=== PATIENT | female | born 1945 | race Caucasian/White ===

== ENCOUNTER → 2021-12-13 08:56 | Outpatient (BNVA) | payer MEDICARE, OTHER, SELFPAY | PROVIDERS: PCP Family Medicine; Visit Provider Internal Medicine Cardiovascular Disease | DX: I83.813 Varicose veins of bilateral lower extremities with pain (principal); E78.5 Hyperlipidemia, unspecified; Z79.82 Long term (current) use of aspirin | CPT/HCPCS: 93005; Q3014 ==

== ENCOUNTER → 2022-01-14 13:16 | Outpatient (BNVA) | payer MEDICARE, OTHER, SELFPAY | PROVIDERS: PCP Family Medicine; Visit Provider Surgery Vascular Surgery | DX: I83.11 Varicose veins of right lower extremity with inflammation (principal) | CPT/HCPCS: 99202 ==

== ENCOUNTER 2022-01-23 12:40 | Outpatient (REF) | payer MEDICARE, OTHER, SELFPAY ==
--- NOTE | ~2022-01-23 | US_ITS ---
EXAMINATION: US LOWER EXTREMITY VENOUS (REFLUX EXAM), BILATERAL CLINICAL INDICATION: This is a 76-year-old female with venous insufficiency and varicose veins. COMPARISON: None. TECHNIQUE: Color flow triplex imaging and compression Doppler was performed to evaluate both the deep and the superficial systems bilaterally. To evaluate the superficial system, the examination was performed in the upright position. Color-flow Doppler ultrasound and compression ultrasound were utilized. In addition, maneuvers were utilized to demonstrate reflux. FINDINGS: 1. DEEP VENOUS ULTRASOUND OF THE RIGHT LOWER EXTREMITY: Common Femoral Vein: Compressible, normal respiratory variation and augmented flow. Femoral vein: Compressible, normal color flow and augmentation. Popliteal Vein: Compressible, normal augmentation. Deep Reflux: There is no evidence of reflux in the deep system in either the common femoral vein or the popliteal vein. There is no evidence of a Gatica's cyst. 2. SUPERFICIAL ULTRASOUND WITH DOPPLER OF RIGHT LOWER EXTREMITY: GREAT SAPHENOUS VEIN: Saphenofemoral Junction: 0.7 cm. There is no reflux. Mid Thigh: 0.2 cm. The reflux time is 2152 ms. Above Knee: 0.3 cm. There is no reflux. Below Knee: 0.3 cm. There is no reflux. Mid Calf: 0.4 cm. The reflux time is 3892 ms. Ankle: 0.3 cm. The reflux time is 2064 ms. GSV REFLUX: There is isolated reflux in the areas of the great saphenous vein without reflux at the saphenofemoral junction. DUPLICATED GREAT SAPHENOUS VEIN: None SMALL SAPHENOUS VEIN: Proximal: 0.6 cm. The reflux time is 2020 ms. Distal: 0.7 cm. The reflux time is 2680 ms. SSV REFLUX: There is reflux in the small saphenous vein including at the junction. VEIN OF GIACOMINI: None Imaged. 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 VARICOSITIES: There are 0.4 cm and 0.5 cm, respectively, below knee and calf varicose veins with 2 seconds of reflux. 3. DEEP VENOUS ULTRASOUND OF THE LEFT LOWER EXTREMITY: Common Femoral Vein: Compressible, but with reflux of 1508 ms. Femoral Vein: Compressible, normal color flow and augmentation. Popliteal Vein: Compressible, normal augmentation. Deep Reflux: There is evidence of reflux in the left common femoral vein but not below that area. There is no evidence of a Gatica's cyst. 4. SUPERFICIAL ULTRASOUND WITH DOPPLER OF LEFT LOWER EXTREMITY: GREAT SAPHENOUS VEIN: Saphenofemoral Junction: 1.1 cm. The reflux time is 2000 128 ms per Mid Thigh: 0.8 cm. The reflux time is 2076 ms. Above Knee: 0.9 cm. The reflux time is 3256 ms. Below Knee: Not seen. Mid Calf: 0.2 cm. There is no reflux. Ankle: 0.2 cm. There is no reflux. GSV REFLUX: There is reflux in the great saphenous vein beginning at the saphenofemoral junction and then extending down to the knee. DUPLICATED GREAT SAPHENOUS VEIN: None SMALL SAPHENOUS VEIN: Proximal: 0.2 cm Distal: 0.2 cm SSV REFLUX: No evidence of reflux. VEIN OF GIACOMINI: None Imaged. PERFORATORS: There are 0.4 cm perforators below the knee with greater than 2 seconds of reflux. VARICOSITIES: There are 0.4 cm varicose veins in the mid thigh and below the knee. Below knee varicose veins reflux greater than 2 seconds. There is a large collection of varicose veins seen in the left medial proximal calf. US/US venous duplex LE BI IMPRESSION: 1. There is a patent right great saphenous vein without reflux at the saphenofemoral junction. 2. There is a patent right small saphenous vein with reflux at the junction and extending downward. 3. There are varicose veins below the knee with 2 seconds of reflux. 4. There is a patent left great saphenous vein with greater than 2 seconds of reflux at the saphenofemoral junction and extending down to the knee. 5. There is a patent left small saphenous vein without reflux. 6. There are varicose veins with greater than 2 seconds of reflux below the knee.
== END 2022-01-23 12:41 | disposition home or self-care (01) ==
LOC: HO.US 12:40
PROVIDERS: PCP Internal Medicine; Visit Provider Surgery Vascular Surgery
DX: I83.11 Varicose veins of right lower extremity with inflammation (principal)
CPT/HCPCS: 93970

== ENCOUNTER → 2022-02-04 15:17 | Outpatient (BNVA) | payer MEDICARE, OTHER, SELFPAY | PROVIDERS: PCP Internal Medicine; Visit Provider Surgery Vascular Surgery | DX: I83.12 Varicose veins of left lower extremity with inflammation (principal) | CPT/HCPCS: 99212 ==

== ENCOUNTER → 2022-03-07 12:35 | Outpatient (BNVA) | payer MEDICARE, OTHER, SELFPAY | PROVIDERS: PCP Internal Medicine; Visit Provider Surgery Vascular Surgery | DX: I83.12 Varicose veins of left lower extremity with inflammation (principal) | CPT/HCPCS: 36475 ==

== ENCOUNTER 2022-03-10 14:25 | Outpatient (REF) | payer MEDICARE, OTHER, SELFPAY ==
--- NOTE | ~2022-03-10 | US_ITS ---
EXAMINATION: US VENOUS ULTRASOUND WITH DOPPLER LOWER EXTREMITY, LEFT CLINICAL INFORMATION: Pain. History of greater saphenous vein RFA for an 07/19/2022 COMPARISON: Previous exam December 2021 TECHNIQUE: Ultrasound of the deep veins is performed from the hip to the calf with compression sonography and color and pulse Doppler assessment. Spectral analysis with color-flow imaging is performed. FINDINGS: There is normal venous compression and respiratory variation and augmented flow. The visualized common femoral vein, superficial femoral vein, profunda femoral vein, popliteal vein, and the trifurcation region shows no evidence of deep venous thrombosis. There is echogenic material in the left greater saphenous vein post RFA. This is 2.9 cm from the saphenofemoral junction. US/US venous duplex LE LT IMPRESSION: No DVT demonstrated in the left lower extremity.
== END 2022-03-10 14:26 | disposition home or self-care (01) ==
LOC: HO.US 14:25
PROVIDERS: PCP Internal Medicine; Visit Provider Surgery Vascular Surgery
DX: M79.605 Pain in left leg (principal)
CPT/HCPCS: 93971

== ENCOUNTER → 2022-03-20 13:04 | Outpatient (BNVA) | payer MEDICARE, OTHER, SELFPAY | PROVIDERS: PCP Internal Medicine; Visit Provider Surgery Vascular Surgery | DX: I83.892 Varicose veins of left lower extremity with other complications (principal); I83.11 Varicose veins of right lower extremity with inflammation; Z98.890 Other specified postprocedural states | CPT/HCPCS: 99212 ==

== ENCOUNTER → 2022-04-11 10:23 | Outpatient (BNVA) | payer MEDICARE, OTHER, SELFPAY | PROVIDERS: PCP Internal Medicine; Visit Provider Surgery Vascular Surgery | DX: I83.11 Varicose veins of right lower extremity with inflammation (principal) | CPT/HCPCS: 36475 ==

== ENCOUNTER 2022-04-14 11:01 | Outpatient (REF) | payer MEDICARE, OTHER, SELFPAY ==
--- NOTE | ~2022-04-14 | US_ITS ---
EXAMINATION: US VENOUS ULTRASOUND WITH DOPPLER LOWER EXTREMITY, RIGHT CLINICAL INFORMATION: Pain COMPARISON: 01/23/2022 TECHNIQUE: Ultrasound of the deep veins is performed from the hip to the calf with compression sonography and color and pulse Doppler assessment. Spectral analysis with color-flow imaging is performed. FINDINGS: The visualized common femoral vein, superficial femoral vein and profunda femoral vein are patent. Possible small/focal short segment nonocclusive thrombus within the popliteal vein. Calf veins are patent. There is no significant popliteal fossa cyst. Thrombus present within a small saphenous vein. US/US venous duplex LE RT IMPRESSION: Focal/short segment nonocclusive thrombus within the popliteal vein. Thrombosis of the small saphenous vein of the calf. Report given to Dr. Jaffe at 11:45 AM
== END 2022-04-14 11:02 | disposition home or self-care (01) ==
LOC: HO.US 11:01
PROVIDERS: Visit Provider Surgery Vascular Surgery
DX: M79.604 Pain in right leg (principal)
CPT/HCPCS: 93971

== ENCOUNTER → 2022-04-24 11:39 | Outpatient (BNVA) | payer MEDICARE, OTHER, SELFPAY | PROVIDERS: PCP Internal Medicine Hematology & Oncology; Visit Provider Surgery Vascular Surgery | DX: I83.12 Varicose veins of left lower extremity with inflammation (principal) | CPT/HCPCS: 99212 ==

== ENCOUNTER → 2022-05-02 10:24 | Outpatient (BNVA) | payer MEDICARE, OTHER, SELFPAY | PROVIDERS: PCP Internal Medicine Hematology & Oncology; Visit Provider Surgery Vascular Surgery | DX: I83.12 Varicose veins of left lower extremity with inflammation (principal) | CPT/HCPCS: 37765 ==

== ENCOUNTER → 2022-05-13 11:41 | Outpatient (BNVA) | payer MEDICARE, OTHER, SELFPAY | PROVIDERS: PCP Internal Medicine Hematology & Oncology; Visit Provider Surgery Vascular Surgery | DX: I83.12 Varicose veins of left lower extremity with inflammation (principal); Z98.890 Other specified postprocedural states | CPT/HCPCS: 99212 ==

== ENCOUNTER → 2022-08-19 10:52 | Outpatient (BNVA) | payer MEDICARE, OTHER, SELFPAY | PROVIDERS: PCP Internal Medicine Hematology & Oncology; Visit Provider Surgery Vascular Surgery | DX: I83.11 Varicose veins of right lower extremity with inflammation (principal) | CPT/HCPCS: 99212 ==